=== PATIENT | female | born 1950 | race Caucasian/White ===

== ENCOUNTER 2019-07-26 13:51 | Emergency (ER) | payer MEDICARE, BC ==
[2019-07-26] MEDS ORDERED: LEVOTHYROXIN0.075 MG PO (14:03)
[2019-07-26] MEDS ORDERED: HYDROCHLOROTH12.5 M1 (14:04)
[2019-07-26] MEDS ORDERED: CEPHALEXIN500 M1 PO (17:58)
[2019-07-26] MEDS ORDERED: NORCO 325 MG-51 TA1 PO (17:59)
[2019-07-26 18:07] VITALS: BP 144/92
== END 2019-07-26 18:13 | disposition home or self-care (01) ==
LOC: ED 13:51
DX: S02.2XXA Fracture of nasal bones, initial encounter for closed fracture (principal); S01.511A Laceration without foreign body of lip, initial encounter; S01.512A Laceration without foreign body of oral cavity, initial encounter; R04.0 Epistaxis; I10 Essential (primary) hypertension; W01.198A Fall on same level from slipping, tripping and stumbling with subsequent striking against other object, initial encounter; Y92.481 Parking lot as the place of occurrence of the external cause